=== PATIENT | female | born 1990 | race Caucasian/White ===

== ENCOUNTER 2022-04-04 16:46 | Inpatient (IN) | payer OTHER ==
[~2022-04-04] VITALS: Ht 160 cm; Wt 77.1 kg
--- NOTE | 2022-04-04 | NUR ---
FOLLOW UP PATIENT RESTING WITH EYES CLOSED, XANAX APPEARS EFFECTIVE FOR ANXIETY. Addendum: 04/05/22 at 0326 by TANISHA Renteria RN CORRECTION FOLLOW UP PERFORMED AT 2200 ON 04/04/22
[2022-04-04 17:00] VITALS: BP 113/73
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
--- NOTE | 2022-04-04 18:28 | NUR ---
HOSPITALIST NOTIFIED DR ARRIAGA OF PT ADMIT. DR ARRIAGA ASK THAT DUE TO IT BEING LATE TO PLEASE CALL HOSPITALIST PERSONAL CARE ASSISTANT TOMORROW, SHE IS NOT PERSONAL CARE ASSISTANT TOMORROW.
[2022-04-04] MEDS ORDERED: VENL150C3 PO (18:39)
[2022-04-04] MEDS ORDERED: ARIP5TAB13 PO (18:39)
[2022-04-04 20:12] VITALS: BP 110/76
--- NOTE | 2022-04-04 20:35 | NUR ---
PSYCHIATRY JOB TRAINING SUPERVISOR REF ANXIETY AND SLEEP. ALLERGY PATIENT REQUESTING SOMETHING FOR SLEEP AND ANXIETY, CONTACTED RODDY SARGENT, REPORTED SAME REVIEWED ALLERGY TO LATEX. REMERON 15 MG ORDERED AT HS SCHEDULED, XANAX 0.25 MG ORDERED NEEDED FOR ANXIETY ORAL BID. REPORTED OTHER CLIENT HAD GIVEN PATIENT A STRESS BALL SHE HAD MADE BEFORE PATIENT REALIZED THIS WAS MADE OF LATEX BALLOON, STRESS BALL REMOVED, PATIENT WASHED HANDS WELL, THERE WAS A SMALL RED IRRITATED AREA TO RIGHT WRIST. PATIENT VOICES WHEN SHE HAS REACTION TO LATEX AT HOME IT WILL RESOLVE WITHOUT PROBLEMS.
--- NOTE | 2022-04-04 20:50 | NUR ---
NOCTURNAL HOSPITALIST/POTASSIUM CONTACTED DR DAMON, REVIEWED POTASSIUM PRIOR TO ADMIT TODAY 2.9. CREATINE 0.63. REVIEWED ALLERGIES AND REPORTED PATIENT HAS HAD SOME PRESSURE TO CHEST. REVIEWED EKG IS ORDERED AND TROPONIN LEVEL ORDERED, PATIENT HAS NOT BEEN ON POTASSIUM IN THE PAST. NEW ORDER RECEIVED FOR POTASSIUM 40 MEQ ORAL NOW AND REPEAT IN 4 HOURS. OBTAIN BMP AND MAGNESIUM IN AM. EDUCATED PATIENT ON NEW ORDER, UNDERSTANDING VOICED.
[2022-04-04] MEDS: REMERON PO SCH (21:00)
[2022-04-04] MEDS: XANAX PO PRN (21:00)
--- NOTE | 2022-04-04 21:00 | NUR ---
ANXIETY PATIENTS ANXIETY 05/23. PRN XANAX 0.25 MG ORAL ADMINISTERED FOR ANXIETY.
[2022-04-04] MEDS ORDERED: KLOR-CON 10 PO ONE (21:30)
--- NOTE | 2022-04-04 22:00 | NUR ---
FOLLOW UP PATIENT RESTING WITH EYES CLOSED, XANAX APPEARS EFFECTIVE FOR ANXIETY.
[2022-04-05] MEDS ORDERED: KLOR-CON 10 PO ONE (01:10)
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
[2022-04-05 08:45] VITALS: BP 122/82
[2022-04-05] MEDS: NICOTINE 21MG PATCH TD SCH (09:00)
--- NOTE | 2022-04-05 09:02 | PCM.EKG ---
[facility] Test Date: 2022-04-05 Test Time: 08:57:06 Pat Name: LEONEL MALIK Department: Room: 212 A Gender: F Personal Banking Representative: : 1990 Requested By: MAURI GOODSON Order Number: [id number] Reading MD: Measurements Intervals [place] Rate: 84 P: 70 SC: 155 QRS: 72 QRSD: 100 T: 52 QT: 403 QTc: 477 Interpretive Statements Sinus rhythm Borderline prolonged QT interval No previous ECG available for comparison Please click the below link to view image of tracing.
--- NOTE | 2022-04-05 09:45 | NUR ---
TELEMED PT SEEN BY DR. MAURI GOODSON VIA TELEMED, NEW ORDERS RECEIVED TO RE START HOME MEDICATIONS ABILIFY AND EFFEXOR. PT AGREEABLE TO PLAN AT THIS TIME. SEE EMR.
--- NOTE | 2022-04-05 09:54 | PCM.HP ---
History of Present Illness Hx of Present Illness 31 yo F, admitted to [facility] for worsening mood/anxiety and SI. Per report, patient was at PCP yesterday, reported that she had SI with plan to shoot or cut self, so was referred here. Patient reports that she has been increasingly depressed/anxious, and felt like giving up on life. She feels like it's related to having dropped out of school at 17 yo to be a and mother of 6 kids, "I didn't do the things in life that I'd planned." She reports depressed mood, with associated poor appetite, poor sleep (hadn't slept in 3 days), anhedonia, low energy/motivation. She also reports having an argument with her because she wanted to go stay with her mother (because she was feeling depressed/anxious). She reports having SI for the last few days, but denies SI today. No HI. No psychotic symptoms. She reports feeling anxious, tends to catastrophize, "I literally take any little thing and blow it up ... we could be driving and I think we're going to get into a car accident." Patient states that she has been on Effexor/Abilify for about 1.5 years, feels like they helped more at first, but not so much recently. She states that she was just started on Remeron/Xanax yesterday; she got her 1st dosages last night while inpatient, and felt better and was able to sleep 8 hrs. Patient would like to work on her coping skills while she is inpatient. E: denies T: 1 PPD D: +MJ, hourly Past Psych Hx: Managed by her PCP, has not seen psychiatrist/therapist Prior psych admissions: denies Prior suicide attempts: denies NSSI: cutting (last time 7 years ago) Past Medical Hx: Denies Social Hx: Lives with and 6 kids Family Hx: Mother: depression/anxiety 2 1/2 sisters: depression/anxiety Current Medications: Abilify 5mg EffexorXR 150mg Remeron 15mg Xanax 0.5mg BID Review of Systems Other Mental Status Examination: Gen: A&Ox4, appears stated age, casual dress, good hygiene, good eye contact, cooperative Speech: normal rate/volume, easily understood Mood: depressed/anxious Affect: congruent with mood Intelligence: avg by fund of knowledge TC: denies SI/HI, denies AVH/paranoia TP: C/L/GD Insight: fair Judgment: fair Allergies: Coded Allergies: Penicillins (Verified Allergy, Severe, rash, 04/04/22) Latex, Natural Rubber (Verified Adverse Reaction, Severe, Anaphylaxis Shock, 04/04/22) latex (Verified Adverse Reaction, Severe, Anaphylaxis Shock, 04/04/22) morphine (Verified Adverse Reaction, Severe, 04/04/22) pt gets very sick Scheduled Aripiprazole (Abilify), 5 MG PO DAILY24, (Reported) Venlafaxine Hcl (Effexor Xr), 150 MG PO DAILY24, (Reported) VTE VTE Risk Total Score: 0 VTE Risk Score VTE Risk: Score 0-1 = Low Risk (Aggressive mobilization; early ambulation; no VTE prophylaxis required) Score 2: Moderate Risk (Intermittent/Pneumatic Compression Device OR Lovenox/Heparin/Coumadin) Score 3-4: High Risk (Intermittent/Pneumatic Compression Device AND Lovenox/Heparin/Coumadin) Score > or =5: Highest Risk (Intermittent/Pneumatic Compression Device AND Lovenox/Heparin/Coumadin) VTE VTE Present on Admission: No Currently receiving anticoagul: No VTE Risk Total Score: 0 Exam Vital Signs Vital Signs Date Time Temp Pulse Resp B/P (MAP) Pulse Ox O2 Delivery O2 Flow Rate FiO2 04/05/22 08:45 98.1 76 18 122/82 (95) 96 Room Air* 0 21 Psych/Mental Status: Other (see MSE above) Assessment/Plan Assessment/Plan Assessment/Plan 31 yo F, hx of depression/anxiety, admitted to [facility] for worsening mood/anxiety and SI in the context of psychosocial stressors. Patient reporting benefit to recently starting Remeron/Xanax, will hold any other med changes at this time. Patient also wanting to work on her coping skills while she is admitted here and open to referral to IOP on discharge. Reviewed R/B/SEs of medications. PVU, agrees with plan. [place] I: MDD, rec, severe Plan: 1) Medications: -continue Abilify 5mg PO Q1PM for mood -continue EffexorXR 150mg PO Q1PM for mood -continue Remeron 15mg PO QHS for sleep -continue Xanax 0.5mg PO BID PRN anxiety 2) Continue behavioral management 3) Appreciate hospitalist assistance with medical issues MAURI GOODSON MD Apr 05, 2022 09:53
--- NOTE | 2022-04-05 11:00 | NUR ---
SW ASSESSMENTS: SW ATTEMPTED ASSESSMENTS BUT PT C/O OF HEADACHE AND WOULD LIKE TO SIT IN THE DARK AND DO ASSESSMENTS WHEN HER HEAD ISN'T HURTING BAD.
[2022-04-05] MEDS ORDERED: XANAX ONE ×2 (11:11→20:44)
[2022-04-05] MEDS: XANAX PO PRN ×2 (11:12→20:44)
--- NOTE | 2022-04-05 11:12 | NUR ---
PRN MEDICATION PT GIVEN PRN XANAX. PT RATED ANXIETY 03/23. PT REQUESTED MEDICATION. WILL CONTINUE TO MONITOR PT
--- NOTE | 2022-04-05 12:19 | NUR ---
FOLLOW UP XANAX EFFECTIVE PT IN BED RESTING WITH EYES CLOSED AT THIS TIME. NON LABORED BREATHING. WILL CONTINUE TO MONITOR PT.
[2022-04-05] MEDS ORDERED: EFFEXOR XR ONE (12:28)
[2022-04-05] MEDS ORDERED: ABILIFY ONE (12:28)
--- NOTE | 2022-04-05 12:31 | PRM.CONS ---
Consultation Reason for Consult: Reason for Consultation: Medical management History of Present Illness History of Patient Comments 31 yo F, admitted to [facility] for worsening mood/anxiety and SI. Per report, patient was at PCP yesterday, reported that she had SI with plan to shoot or cut self, so was referred here. Hospitalist service is being consulted for medical management. Patient denies chest pain shortness of breatht nausea vomiting abdominal pain.She is a cigarette smoker. Also she use marijuana. No significant past medical history otherwise. Vitals & Lab Vital Signs Date Time Temp Pulse Resp B/P (MAP) Pulse Ox O2 Delivery O2 Flow Rate FiO2 04/06/22 08:30 98.5 69 16 132/60 (84) 97 Room Air* 0 21 Awake alert does not appear to be in acute distress, anxious Head and neck normocephalic atraumatic Neck is supple no JVD Chest fair bilateral air entry Heart S1-S2 regular Abdomen soft nontender bowel sounds present Neuro awake alert oriented no focal deficit Psych unable to assess Extremities no clubbing cyanosis Review of Systems Constitutional: Other (Anxious) Respiratory: No: Shortness of breath Cardiovascular: No: Chest Pain Gastrointestinal: No: Nausea, Vomiting Other Review of other 14 systems negative except was mentioned above. Allergies: Coded Allergies: Penicillins (Verified Allergy, Severe, rash, 04/04/22) Latex, Natural Rubber (Verified Adverse Reaction, Severe, Anaphylaxis Shock, 04/04/22) latex (Verified Adverse Reaction, Severe, Anaphylaxis Shock, 04/04/22) morphine (Verified Adverse Reaction, Severe, 04/04/22) pt gets very sick diphenhydramine (Verified Adverse Reaction, Mild, ITCHING, 04/05/22) PATIENT STATES SHE ITCHES WHEN SHE TAKES BENADRYL Scheduled Aripiprazole (Abilify), 5 MG PO DAILY24, (Reported) Venlafaxine Hcl (Effexor Xr), 150 MG PO DAILY24, (Reported) VTE VTE Risk Total Score: 0 VTE Risk Score VTE Risk: Score 0-1 = Low Risk (Aggressive mobilization; early ambulation; no VTE prophylaxis required) Score 2: Moderate Risk (Intermittent/Pneumatic Compression Device OR Lovenox/Heparin/Coumadin) Score 3-4: High Risk (Intermittent/Pneumatic Compression Device AND Lovenox/Heparin/Coumadin) Score > or =5: Highest Risk (Intermittent/Pneumatic Compression Device AND Lovenox/Heparin/Coumadin) Assessment/Plan Assessment/Plan Assessment/Plan 31 yo F, admitted to [facility] for worsening mood/anxiety and SI. Per report, patient was at PCP yesterday, reported that she had SI with plan to shoot or cut self, so was referred here. Hospitalist service is being consulted for medical management. Patient denies chest pain shortness of breatht nausea vomiting abdominal pain.She is a cigarette smoker. Also she use marijuana. No significant past medical history otherwise. Plan Patient is medically stable no active medical issues otherwise. Nicotine patch Further management as per psychiatrist. Thank you for consulting us we will follow patient with you as needed Problems: (1) MDD (major depressive disorder), recurrent episode, severe ICD Code: F33.2 - Major depressive disorder, recurrent severe without psychotic features SNOMED: 822424531, [id number] (2) Cigarette smoker ICD Code: F17.210 - Nicotine dependence, cigarettes, uncomplicated SNOMED: 44062073 ADRI KENNEDY MD Apr 05, 2022 12:31
[2022-04-05] MEDS: EFFEXOR XR PO SCH (12:48)
[2022-04-05] MEDS: ABILIFY PO SCH (12:48)
--- NOTE | 2022-04-05 15:43 | NUR ---
P.I.R.P. P. ALTERATION IN MOOD, DTS I. DIRECT LINE OF SIGHT OBSERVATION, PROVIDE SAFE AND SUPPORTIVE ENVIRONMENT, PROVIDE 1:1 TO ALLOW PT TO EXPRESS FEELINGS, PROVIDE MEDICATION ORDERED BY PHYSICIAN, PROVIDE MEDICATION EDUCATION. ENCOURAGE OWN SELF CARE. ENCOURAGE GROUP PARTICIPATION. R. PT HAS SECLUDED HERSELF TO ROOM MAJORITY OF SHIFT EXCEPT FOR MEAL TIMES PT COMES OUT TO EAT. PT RATED DEPRESSION 8/10 AND ANXIETY8/10. PT DENIED SI/HI. PT DENIED BEING PARANOID. NO HALLUCINATIONS OR DELUSIONS NOTED THIS SHIFT. PT HAS TAKEN ALL MEDICATION ORDERED BY PHYSICIAN. 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 PT DID REQUIRE A PRN XANAX THROUGHOUT SHIFT. PT DID NOT PARTICIPATE IN GROUP ACTIVITY. P. CONTINUED ON HOME MEDICATIONS ABILIFY AND EFFEXOR. ENCOURAGE GROUP PARTICIPATION.
[2022-04-05] MEDS: TYLENOL PO PRN (16:11)
[2022-04-05 20:23] VITALS: BP 116/73
[2022-04-05] MEDS ORDERED: REMERON ONE (20:44)
[2022-04-05] MEDS: REMERON PO SCH (20:45)
--- NOTE | 2022-04-05 20:45 | NUR ---
PRN XANAX ADMINISTRATION PATIENT STATES SHE IS ANXIOUS AND HER ANXIETY IS 8/10.
--- NOTE | 2022-04-05 21:05 | NUR ---
NEW OT ORDER CALL PLACED TO HOSPITALIST MAHOGANY MIRANDA TO GET A NEW ORDER FOR PAIN MEDICATION RELATED TO MIGRAINE HEADACHE. PATIENT PAIN LEVEL EXCEEDS PERIMETERS FOR ADMINISTRATION OF ORDERED TYLENOL. A NEW VERBAL ORDER FOR A ONE TIME DOSE OF IBUPROFEN 800MG PO X1 TO BE GIVEN AT THE SAME TIME NEW VERBAL ORDER OF BENADRYL 50MG PO X1 DOSE. WHEN THIS NURSE WENT OVER THESE MEDICATIONS WITH PATIENT PATIENT INFORMED THIS NURSE THAT SHE WAS ALLERGIC TO BENADRYL. THIS NURSE DISCONTINUED BENADRYL AT THAT TIME. ALLERGY ADDED TO LIST. IBUPROFEN WAS ADMINISTERED. PATIENT IS NOW LYING IN BED WITH EYES CLOSED. WILL CONTINUE TO MONITOR.
--- NOTE | 2022-04-05 21:22 | NUR ---
OT DOSE IBUPROFEN ADMINISTRATION IBUPROFEN BEING ADMINISTERED FOR MIGRAINE.
[2022-04-05] MEDS ORDERED: MOTRIN ONE (21:26)
[2022-04-05] MEDS ORDERED: BENADRYL PO ONE (21:30)
[2022-04-05] MEDS ORDERED: MOTRIN PO ONE (21:30)
--- NOTE | 2022-04-06 06:56 | NUR ---
PIRP- P- DTS AND ALTERATION IN MOOD I- PROVIDE SAFE AND SUPPORTIVE ,MEDICATION EDUCATION AND PROVIDE MEDICATIONS ORDERED,OBSERVE BEHAVIORS. PROVIDE 1:1 INTERVENTION ALLOWING PT. TO EXPRESS THOUGHTS AND FEELINGS. ENCOURAGE PT. TO EXPRESS THOUGHTS AND FEELINGS. R- PT. RATED DEPRESSION 4 AND ANXIETY 8 AND DENIED SI THIS SHIFT. ATTENDED GROUP,ATE SNACKS AND INITIATED INTERACTION. WROTE LETTERS TO FAMILY. PT. STATED HER AND MOTHER ANSWERS FOR HER ALL THE TIME BUT STATES IT DOES NOT BOTHER HER. SHE STATES HER HAS ADHD AND TAKES NO MEDICINE FOR IT . SHE STATED IT GETS ON HER NERVES BECAUSE HER TALKS TOO MUCH. SHE STATED SHE AND HER ARE AND SHE IS TRYING TO DECIDE IF SHE IS GOING TO GO BACK TO HIM. TOOK MEDICATION ORDERED. RESTING IN BED WITH EYES CLOSED AT THIS TIME. P- WILL CONTINUE TO PROVIDE MEDICATION ORDERED .
[2022-04-06 08:30] VITALS: BP 132/60
[2022-04-06] MEDS: ABILIFY PO SCH ×2 (08:41→12:43)
[2022-04-06] MEDS: EFFEXOR XR PO SCH ×2 (08:41→12:43)
[2022-04-06] MEDS ORDERED: NICOTINE 21MG PATCH TD ONE (08:42)
[2022-04-06] MEDS: NICOTINE 21MG PATCH TD SCH (08:43)
[2022-04-06] MEDS ORDERED: XANAX ONE ×2 (09:39→19:42)
[2022-04-06] MEDS: XANAX PO PRN ×2 (09:40→19:42)
--- NOTE | 2022-04-06 09:40 | NUR ---
ANXIETY PT REQUEST SOMETHING FOR HER ANXIETY. RATES IT 03/23. XANAX 0.25MG PO GIVEN
--- NOTE | 2022-04-06 11:00 | NUR ---
FOLLOW UP PT IS LYING DOWN IN BED. VOICES ANXIETY IS SOME BETTER.
[2022-04-06] MEDS ORDERED: ABILIFY ONE ×2 (12:42→20:48)
[2022-04-06] MEDS ORDERED: TYLENOL ONE (12:42)
[2022-04-06] MEDS ORDERED: EFFEXOR XR ONE (12:42)
[2022-04-06] MEDS: TYLENOL PO PRN (12:44)
[2022-04-06] MEDS ORDERED: EFFEXOR XR PO SCH (13:00)
[2022-04-06] MEDS ORDERED: ABILIFY PO SCH ×2 (13:00→21:00)
--- NOTE | 2022-04-06 16:00 | NUR ---
TELEMED PT WAS SEEN BY Emilie BELL APRN VIA TELEMED AT THIS TIME. NEW ORDERS FOR ABILIFY 10MG TONIGHT. THEN START ABILIFY 15MG TOMORROW NIGHT. DECREASE EFFEXOR XR TO 37.5MG AT 1300 FOR A WEEK. LUVOX 50MG DAILY.
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
--- NOTE | 2022-04-06 17:19 | NUR ---
PIRP P: DTS, ALTERATION IN MOOD I: DIRECT LINE OF SIGHT OBSERVATION, ASSESS REASONS FOR DEPRESSION/ANXIETY, PROVIDE 1:1 TO ENCOURAGE EXPRESSION OF FEELINGS, PROVIDE TASK-ORIENTED ACTIVITIES, ALTERNATE REST/ACTIVITY, ENCOURAGE SOCIAL INTERACTION, PROVIDE SAFE AND SUPPORTIVE ENVIRONMENT, PROVIDE MEDICATION EDUCATION, GIVE MEDICATIONS ORDERED, TEACH RELAXATION TECHNIQUES R: PATIENT HAS FLAT AFFECT MAJORITY OF SHIFT, ANXIOUS AT TIMES. HAS REQUESTED x1 DOSE OF PRN ANXIOLYTIC, WHICH PATIENT REPORTS WAS EFFECTIVE. PATIENT HAS PRACTICED BREATHING TECHNIQUES WITH STAFF TO HELP REDUCE ANXIETY, HAS NOT ACTIVELY PARTICIPATED IN GROUP ACTIVITIES, BUT HAS REMAINED IN DAY ROOM WITH STAFF AND WRITTEN IN JOURNAL. INITIATES MINIMAL INTERACTION WITH STAFF AND PEERS, RESPONDS APPROPRIATELY TO APPROACH. NO HALLUCINATIONS/DELUSIONS NOTED. PATIENT DENIES FEELINGS OF PARANOIA. RATES DEPRESSION 8/, ANXIETY HAS VARIED. DENIES SI/HI. PATIENT HAS TAKEN MEDICATIONS ORDERED AND HAS PARTICIPATED IN OWN SELF-CARE. P: ABILIFY INCREASED, EFFEXOR DECREASED
--- NOTE | 2022-04-06 19:42 | NUR ---
PRN XANAX ADMINISTRATION PATIENT C/O ANXIETY PATIENT RATES ANXIETY AT 02/20.
[2022-04-06 20:37] VITALS: BP 124/75
--- NOTE | 2022-04-06 20:43 | NUR ---
FOLLOW UP XANAX PATIENT STATES THE XANAX DID NOT HELP AND HER ANXIETY IS STILL 7/10. PATIENT STATES SHE ALWAYS FEELS THIS ANXIOUS.
[2022-04-06] MEDS: REMERON PO SCH (20:49)
[2022-04-06] MEDS ORDERED: REMERON ONE (20:49)
--- NOTE | 2022-04-06 22:42 | NUR ---
MYLES ADMINISTRATION AT 2100 WHEN THIS NURSE ATTEMPTED TO SCAN MEDICATION FOR ADMINISTRATION, THE SYSTEM WOULD NOT LET ME SCAN THE MEDICATION. A SCREEN CONTINUED TO POP UP WITH EVERY ATTEMPT TO SCAN STATING THAT THE MEDICATION HAD BEEN DISCONTINUED. THE eMAR SHOWED THAT IT WAS TO BE ADMINISTERED AT 2100. THIS NURSE READ THE NOTES FROM THE TELEMED VISIT AND READ WHERE THE MEDICATION WAS TO BE ADMINISTERED AT 2100 SO THIS NURSE DID ADMINISTER THE MEDICATION ORDERED. NOW THE eMAR STATES THE MEDICATION WAS MISSED, BUT IN FACT WAS NOT MISSED.
--- NOTE | 2022-04-07 04:57 | NUR ---
pirp- P- ALTERATION IN MOOD AND DTS I- PROVIDE SAFE AND SUPPORTIVE ENVIRONMENT,PROVIDE MEDICATION ORDERED.OBSERVE BEHAVIORS. PROVIDE 1:1 INTERVENTION ALLOWING PT TO EXPRESS THOUGHTS AND FEELINGS. R- PT. DENIED DEPRESSION AND RATED ANXIETY 7. DENIES SI TONIGHT. ATTENDED GROUP,ATE SNACKS AND DIDN'T INITIATE INTERACTION. QUIET BUT RESPONDS TO APPROACH. PLEASANT BUT FLAT AFFECT. PT. TOOK MEDICATION ORDERED. TOOK SHOWER AND WENT TO BED. NO TEARFULNESS NOTED. PT. SHOWED GROUP A PICTURE OF HER CHILDREN. SHE STATED SHE DIDN'T KNOW IF SHE WAS GOING TO GO BACK TO HER OR NOT. RESTING IN BED WITH EYES CLOSED AT THIS TIME. P- WILL CONTINUE TO ENCOURAGE PT. TO PARTICIPATE IN GROUPS.
[2022-04-07 07:28] VITALS: BP 120/81
[2022-04-07] MEDS ORDERED: NICOTINE 21MG PATCH TD ONE (08:12)
[2022-04-07] MEDS: NICOTINE 21MG PATCH TD SCH (08:13)
[2022-04-07] MEDS: XANAX PO PRN ×2 (08:21→20:23)
[2022-04-07] MEDS ORDERED: XANAX ONE ×2 (08:21→20:22)
--- NOTE | 2022-04-07 08:21 | NUR ---
PRN MEDICATION PT GIVEN PRN XANAX. PT RATED ANXIETY 03/23. PT GIVEN INSTRUCTIONS ON BREATHING TECHNIQUES BY YAMILETH SANDHU.
--- NOTE | 2022-04-07 09:00 | NUR ---
FOLLOW UP XANAX EFFECTIVE PT IN BED WITH EYES CLOSED AT THIS TIME. NON LABORED BREATHING.
--- NOTE | 2022-04-07 10:14 | NUR ---
TELEMED PT SEEN BY DR. MAURI GOODSON VIA TELEMED, NO NEW MEDICATION ORDERS RECEIVED. Addendum: 04/07/22 at 1719 by PHOEBE Pope RN ALSO RECEIVED ORDERS TO DISCONTINUE DLOS OBS AND RESUME Q15 MIN MONITORING.
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
[2022-04-07] MEDS ORDERED: LUVOX PO ONE (10:45)
[2022-04-07] MEDS: LUVOX PO SCH (10:46)
[2022-04-07] MEDS ORDERED: EFFEXOR XR ONE (12:13)
[2022-04-07] MEDS ORDERED: EFFEXOR XR PO SCH (13:00)
--- NOTE | 2022-04-07 17:19 | NUR ---
PIRP P: DTS, ALTERATION IN MOOD I: Q15 MIN OBSERVATION, ASSESS REASONS FOR DEPRESSION/ANXIETY, PROVIDE 1:1 TO ENCOURAGE EXPRESSION OF FEELINGS, PROVIDE TASK-ORIENTED ACTIVITIES, ALTERNATE REST/ACTIVITY, ENCOURAGE SOCIAL INTERACTION, PROVIDE SAFE AND SUPPORTIVE ENVIRONMENT, PROVIDE MEDICATION EDUCATION, GIVE MEDICATIONS ORDERED, REINFORCE RELAXATION TECHNIQUES R: PATIENT HAS BRIGHT, PLEASANT AFFECT MAJORITY OF SHIFT. DID EXHIBIT EPISODE OF INCREASED ANXIETY AFTER WAKING, THIS RN GUIDED PATIENT THROUGH BREATHING TECHNIQUES TO DECREASE ANXIETY; PATIENT ABLE TO GO TO DAY ROOM FOR BREAKFAST AND INTERACT APPROPRIATELY. APPROX AN HOUR LATER, PATIENT AGAIN EXHIBITED EPISODE OF INCREASED ANXIETY, REQUESTED PRN XANAX, WHICH REPORTS WAS EFFECTIVE. PATIENT HAS BEEN COOPERATIVE WITH 1:1 ACTIVITIES, TAKES MEDICATIONS ORDERED, AND HAS PARTICIPATED IN OWN SELF-CARE WITHOUT THE NEED FOR PROMPTING. RATES DEPRESSION 8/10, ANXIETY HAS DECREASED TO 2/10, DENIES SI, BUT DOES REPORT INITIALLY WAKING IN A.M. AND BEING "BUMMED" SHE WOKE UP. DENIES PLAN OR INTENT TO HARM SELF. INTERACTS APPROPRIATELY WITH STAFF AND PEERS. P: PATIENT STARTED LUVOX THIS SHIFT
[2022-04-07] MEDS ORDERED: ABILIFY ONE (20:21)
[2022-04-07] MEDS ORDERED: REMERON ONE (20:21)
[2022-04-07] MEDS: REMERON PO SCH (20:22)
--- NOTE | 2022-04-07 20:24 | NUR ---
PRN XANAX ADMINISTRATION PATIENT C/O ANXIETY. PATIENT RANKS ANXIETY 11/21.
[2022-04-07 20:31] VITALS: BP 124/72
[2022-04-07] MEDS ORDERED: ABILIFY PO SCH (21:00)
--- NOTE | 2022-04-07 21:39 | NUR ---
PRN XANAX FOLLOW UP MEDICATION EFFECTIVE.
--- NOTE | 2022-04-08 04:30 | NUR ---
pirp- P ALTERATION IN MOOD AND NUTRITION I- PROVIDE SAFE AND SUPPORTIVE ENVIRONMENT,OBSERVE BEHAVIORS AND PROVIDE MEDICATION ORDERED. PROVIDE 1:1 INTERVENTION ALLOWING PT. TO EXPRESS THOUGHTS AND FEELINGS. R- PT. DENIED DEPRESSION AND RATED ANXIETY 4 TONIGHT. ATTENDED GROUP ,ATE SNACKS AND READ HER BOOK. PT. STATED HER GOAL TODAY WAS TO GET CONTROL OF HER ANXIETY AND SHE STATED SHE ACCOMPLISHED HTAT GOAL TODAY. PT. STATED SHE WAS HAPPY ABOUT MOVING TO [place] AND GETTING ANOTHER HOUSE. TOOK MEDICATION ORDERED. RESTING IN BED WITH EYES CLOSED AT THIS TIME. P- CONTINUE TO PROVIDE 1:1 INTERACTION ALLOWING PT, TO EXPRESS THOUGHTS AND FEELINGS.
[2022-04-08 08:14] VITALS: BP 119/78
[2022-04-08] MEDS ORDERED: LUVOX PO ONE (08:20)
--- NOTE | 2022-04-08 08:20 | NUR ---
TELEMED PT SEEN BY TATYANA BELL GEARCASE ASSEMBLER VIA TELEMED, ORDERS RECEIVED TO DISCHARGE TODAY 04/08/2022.
[2022-04-08] MEDS: NICOTINE 21MG PATCH TD SCH (08:21)
[2022-04-08] MEDS: LUVOX PO SCH (08:21)
[2022-04-08] MEDS ORDERED: NICOTINE 21MG PATCH TD ONE (08:21)
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
[2022-04-08] MEDS ORDERED: FLUV50TA23 PO (08:47)
[2022-04-08] MEDS ORDERED: ARIP10TA9 PO (08:47)
[2022-04-08] MEDS ORDERED: MIRT15TA3 PO (08:47)
[2022-04-08] MEDS ORDERED: VENL37.5 PO (08:47)
--- NOTE | 2022-04-08 09:04 | NUR ---
FOLLOW UP PATIENT IS TO FOLLOW UP WITH PCP, DR. ELLISON AT [facility] ON 04/21/22 AT 1000. ADDRESS: [facility] [address], [place] [address] PHONE: [phone] FAX #: [phone] PATIENT HAS ALSO BEEN REFERRED TO [facility] FOR OUTPATIENT PSYCHIATRY IN [place], [place]. ADDRESS: [address] [place] [id number] PHONE: [phone] FAX #: [phone] PATIENT IS TO CALL [phone] TO BE SCREENED FOR "NEW SERVICES" THROUGH [facility].
--- NOTE | 2022-04-08 09:25 | NUR ---
RX RX CALLED IN TO [facility] IN [place], [place] [phone].
--- NOTE | 2022-04-08 09:33 | NUR ---
DISCHARGE EDUCATION PT GIVEN TIME AND DATE OF FOLLOW UP APPOINTMENTS AND EDUCATION ON VENLAFAXINE TABLETS, ANXIETY AND PANIC ATTACKS, SMOKING, MIRTAZAPINE TABLETS, SUICIDAL FEELINGS, FLUVOXAMINE TABLETS, DEPRESSION, ARIPIPRAZOLE TABLETS. ALL QUESTIONS AND CONCERNS ANSWERED AT THIS TIME.
--- NOTE | 2022-04-08 10:11 | NUR ---
OFF UNIT PATIENT AMBULATED OFF UNIT ALONGSIDE . STRONG, STEADY GAIT, NO ACUTE DISTRESS NOTED.
--- NOTE | 2022-04-08 10:18 | NUR ---
RX RX CALLED IN TO [facility] IN [place], [place] ([phone]) PER PATIENT REQUEST DUE TO INSURANCE NOT ACCEPTED AT [facility] IN [place], [place]. [facility] NOTIFIED OF RX NEEDING TO BE CANCELED WITH THEIR PHARMACY.
[2022-04-08 10:28] VITALS: BP 119/78
--- NOTE | 2022-04-08 10:39 | NUR ---
DR. BRENT KENNEDY AT BEDSIDE TO SEE PATIENT. Addendum: 04/08/22 at 1040 by PHOEBE Pope RN INCORRECT PATIENT
== END 2022-04-08 10:11 | disposition home or self-care (01) | DRG 885 ==
LOC: GP 16:46 → EEVIPCON 16:46 → GP 04-07 13:47
PROVIDERS: ADMIT Psychiatry & Neurology Psychiatry; ATTEND Psychiatry & Neurology Psychiatry
DX: F33.2 Major depressive disorder, recurrent severe without psychotic features (principal); F17.210 Nicotine dependence, cigarettes, uncomplicated; F12.90 Cannabis use, unspecified, uncomplicated; F41.9 Anxiety disorder, unspecified; Z79.899 Other long term (current) drug therapy
CPT/HCPCS: 36415; 80048; 80061; 83036; 83735; 84484; 93005; 97165; G0378; J3490